=== PATIENT | female | born 1970 | race Caucasian/White ===

== ENCOUNTER → 2017-03-29 | Outpatient (CLI) | payer OTHER ==
[2017-03-29 08:28] LABS: BUN/CREATININE RATIO 11 (0-10)
== END ==
LOC: CT 07:28
PROVIDERS: Internal Medicine Cardiovascular Disease
DX: I70.201 Unspecified atherosclerosis of native arteries of extremities, right leg (principal); R10.2 Pelvic and perineal pain; I77.9 Disorder of arteries and arterioles, unspecified; Z98.62 Peripheral vascular angioplasty status; I70.1 Atherosclerosis of renal artery
CPT/HCPCS: 36415; 75635; 80048; J7050; Q9963